=== PATIENT | female | born 1940 | race Caucasian/White ===

== ENCOUNTER 2018-10-11 08:16 | Outpatient (CLI) | payer MEDICARE, OTHER, SELFPAY | END 2018-10-11 08:36 | PROVIDERS: PCP Internal Medicine; Visit Provider Internal Medicine Interventional Cardiology | DX: I25.10 Atherosclerotic heart disease of native coronary artery without angina pectoris (principal); I42.9 Cardiomyopathy, unspecified; Z95.2 Presence of prosthetic heart valve; I13.0 Hypertensive heart and chronic kidney disease with heart failure and stage 1 through stage 4 chronic kidney disease, or unspecified chronic kidney disease; I50.9 Heart failure, unspecified; Z95.0 Presence of cardiac pacemaker; N18.4 Chronic kidney disease, stage 4 (severe) | CPT/HCPCS: 99204; 93005; 93010 ==